=== PATIENT | male | born 2000 | race Caucasian/White ===

== ENCOUNTER 2021-09-16 14:27 | Observation (INO) | payer OTHER, SELFPAY ==
[2021-09-16] VITALS (7 sets, daily range): BP systolic 121–146; BP diastolic 72–83; PULSE 81–113; RESP 20–30; TEMP 36.6–37; O2SAT 90–97
--- NOTE | ~2021-09-16 | XR_ITS ---
EXAMINATION: XR chest 2V DATE: 09/16/2021 15:05 INDICATION: Asthma exacerbation. TECHNIQUE: Frontal and lateral views of the chest were obtained. COMPARISON: None. FINDINGS: There are airspace opacities in all lung zones bilaterally, worst in the left upper lobe an d right perihilar region. No pleural effusion or pneumothorax. The heart size is normal. IMPRESSION: 1. Diffuse lung disease, consistent with pneumonia. Reviewed, dictated and finalized at location A. [facility]
--- NOTE | 2021-09-16 14:48 | ECG_ITS ---
Measurements Intervals [place] Rate: 106 P: 73 LA: 159 QRS: 143 QRSD: 100 T: 55 QT: 323 QTc: 429 Interpretive Statements SINUS TACHYCARDIA INCOMPLETE RIGHT BUNDLE BRANCH BLOCK LEFT POSTERIOR FASCICULAR BLOCK ST ELEVATION IN DIFFUSE LEADS- CONSIDER PERICARDITIS OR EARLY REPOLARIZATION ABNORMALITY ABNORMAL ECG Electronically Signed On 09-16-2021 20:11:07 SENIOR NET SOFTWARE DEVELOPER by Tim Ng D.O.
--- NOTE | 2021-09-16 14:50 | ED.ASTHMA ---
HPI - Asthma General Chief Complaint: Asthma Stated Complaint: SOB Time Seen by Provider: 09/16/21 14:39 Source: patient Mode of arrival: EMS Limitations: no limitations History of Present Illness HPI Narrative: This is a 21-year-old male that presents to the emergency department for dyspnea. Reports history of asthma. Is on a daily inhaled corticosteroid as well as albuterol as needed. Reports worsening wheezing and cough over the last week. The cough is productive of mucus. He has been Covid vaccinated. Was seen at the clinic on campus and sent to the ED via EMS. Oxygen saturations noted to be in the upper 80s and low 90s. Given nebulizer treatment en route and placed on 2 L nasal cannula. Denies fever or chest pain. Related Data Allergies Allergy/AdvReac Type Severity Reaction Status Date / Time grass pollen Allergy Cough Verified 09/16/21 16:21 Review of Systems Review of Systems: CONSTITUTIONAL: Denies fever ENT: Reports congestion CARDIOVASCULAR: Denies chest pain, or edema. RESPIRATORY: Reports cough and dyspnea. All systems reviewed & are unremarkable except as noted in HPI and below PMFSH Past Medical History Medical History (Updated 09/16/21 @ 17:17 by Teodora Degroot PA-C) History of asthma Social History Social History (Updated 09/16/21 @ 14:53 by Teodora Degroot PA-C) Smoking status: Former smoker Exam Narrative: GENERAL: Well-appearing, well-nourished, and in no acute distress. HEAD: Normocephalic, atraumatic. EYES: EOMI. ENT: Nares clear, no rhinorrhea or epistaxis. Mucous membranes moist. Oropharynx without tonsillar hypertrophy exudate or other lesions. Bilateral TMs pearly diaz non-bulging NECK: Supple. No adenopathy or masses. CHEST: Tachypneic. Diffuse wheezing. No rales or rhonchi HEART: Regular rate and rhythm. No murmur heard. Normal peripheral pulses. EXTREMITIES: Normal range of motion. No edema. SKIN: Warm, dry, no rash. NEURO: No focal deficits. Alert and oriented x3. PSYCH: Normal mood and affect Course Consultations Consultation #1: Spoke with hospitalist about patient and workup who accepts admission Date: 09/16/21 Time: 17:28 Vital Signs Vital signs: Vital Signs Temperature 98.6 F 09/16/21 14:31 Pulse Rate 113 H 09/16/21 14:31 Respiratory Rate 30 H 09/16/21 14:31 Blood Pressure 139/81 09/16/21 14:31 Pulse Oximetry 90 09/16/21 14:31 Temperature 98.6 F 09/16/21 14:31 Pulse Rate 103 H 09/16/21 15:05 Respiratory Rate 27 H 09/16/21 15:05 Blood Pressure 139/81 09/16/21 14:31 Pulse Oximetry 95 09/16/21 14:38 MDM - Asthma MDM Narrative Medical decision making narrative: Patient presents to the emergency department for worsening cough and wheezing noted over the last week. He is afebrile and nontoxic-appearing. Tachycardic upon arrival. Oxygen saturation noted to be 90 on room air. Placed on 2 L nasal cannula. Patient did have a nebulizer treatment in route via EMS. Diffuse wheezing noted on exam. Patient is Covid vaccinated. CBC with leukocytosis to 17.7, likely due to his recent steroid use. Metabolic panel without concerning findings. LDH is elevated. Influenza screen is negative. Chest x-ray shows diffuse lung disease, consistent with pneumonia. EKG without concerning changes, patient denies any chest pain. Patient given dose of Solu-Medrol and breathing treatments with some improvement. Does still have persistent wheezing. SARS-CoV-2 was sent. Patient started on IV antibiotics for possible bacterial pneumonia pending results of Covid swab. Spoke with hospitalist about patient and work-up who accepts admission Lab Data Attestation: I reviewed the patient's lab results. Result diagrams: 09/16/21 15:11 09/16/21 15:11 Labs: Lab Results 09/16/21 09/16/21 09/16/21 Range/Units 15:11 15:11 16:10 WBC 17.7 H (4.5-10.0) K/mm3 RBC 5.15 (4.6-6.20) M/mm3 Hgb 15.8 (14.0-18.0) g/
[2021-09-16] MEDS: methylPREDNISolone SOD SUCC 125 MG VIAL IV PUSH (14:51)
[2021-09-16] MEDS: IPRATROPIUM BR 0.02% INH SOLN 0.5 MG/2.5 ML VIAL INHALATION (15:05)
[2021-09-16] MEDS: ALBUTEROL SULFATE NEB 2.5 MG/0.5 ML INH 5 MG INHALATION (15:05)
[2021-09-16 15:21] LABS: Basophils Absolute Auto 0.1 K/mm3 (0.0-0.1); Basophils Percent Auto 0.8 % (0.2-1.2); Eosinophils Absolute Auto 5.2 K/mm3 (0-0.3); Eosinophils Percent Auto 29.1 % (0-4.4); Hematocrit 44.5 % (42.0-52.0); Hemoglobin 15.8 g/dL (14.0-18.0); Immature Granulocyte Absolute 0.05 K/mm3 (0.00-0.031); Immature Granulocyte Percent A 0.3 % (0-0.5); Lymphocytes Absolute Auto 2.45 K/mm3 (0.9-3.2); Lymphocytes Percent Auto 13.8 % (18.3-44.2); Mean Corpuscular HGB Conc 35.5 g/dl (32-36); Mean Corpuscular Hemoglobin 30.7 pg (26-34); Mean Corpuscular Volume 86.4 fl (80-100); Mean Platelet Volume 8.4 fl (7.4-10.4); Monocytes Percent Auto 5.6 % (2.6-8.5); Neutrophils Absolute Auto 8.9 K/mm3 (1.3-6.7); Neutrophils Percent Auto 50.4 % (45.5-73.1); Platelet Count Result 266 k/mm3 (150-375); Red Blood Count 5.15 M/mm3 (4.6-6.20); Red Cell Distribution Width 11.9 % (11.5-14.5); White Blood Count 17.7 K/mm3 (4.5-10.0)
[2021-09-16 15:37] LABS: Anion Gap 9 mmol/L (8-16); Blood Urea Nitrogen 10 mg/dL (9-20); Calcium 9.1 mg/dL (8.4-10.2); Carbon Dioxide 27 mmol/L (22-30); Chloride 104 mmol/L (98-107); Estimated CRCL calculation 151 ml/min; Estimated Glomerular Filt Rate > 60; Glucose 111 mg/dL (65-110); Potassium 3.6 mmol/L (3.4-5.0); Sodium 140 mmol/L (137-145)
[2021-09-16 16:37] LABS: Alanine Aminotransferase 22 U/L (4-50); Albumin Level 4.2 g/dL (3.5-5.1); Alkaline Phosphatase 88 U/L (38-126); Aspartate Amino Transferase 32 U/L (17-59); Bilirubin,Total 0.5 mg/dL (0.2-1.3); Lactate Dehydrogenase 1349 U/L (313-618)
[2021-09-16 17:22] LABS: Procalcitonin 0.1 ng/mL
[2021-09-16 17:27] LABS: INR 1.1; Partial Thromboplastin Time 25.1 SECONDS (22.3-36.8)
[2021-09-16] MEDS: Please add drug allergy info to patient profile. 1 EACH XX (17:31)
[2021-09-16] MEDS: ALBUTEROL SULFATE (*SP) INHALER 1 PUFF (17:38)
[2021-09-16] MEDS: ALBUTEROL SULFATE (*SP) AEROSOL 1 PUFF 4 PUFF INHALATION (17:38)
--- NOTE | 2021-09-16 18:40 | PC.NURSE ---
Attempted to call report. Room is not clean at this time
--- NOTE | 2021-09-16 20:33 | ADMGEN ---
This patient, Felicia Brody, was admitted to [facility] Surg Room 330-01. Patient/family oriented to hospital policies and general routines including ID bracelet, bed and alarms, visiting hours, pain management, procedures, bathroom and other care routines, personal items, smoking policy, room service/diet, and visiting hours. Information on how to activate the Rapid Response Team has been discussed. Patient/Family are encouraged to report perceived risks to care and to ask questions if they do not understand what they are told or what they should do.
--- NOTE | 2021-09-16 22:38 | PM.IMHP ---
H&P: HPI History of Present Illness Date/Time: 09/16/21 22:38 this is a 21-year-old male patient who resides at [facility]. The patient came from [place] approximately 4 months ago. He states that his roommates are healthy. The patient stated that he had asthma when he was younger. The patient stated that he used to use an inhaler when he was younger. The patient came to the emergency room today with complaints of dyspnea. The patient has been using inhaled cortical steroids daily as well as an albuterol as needed. The patient stated that he has been using his albuterol up to 4 times a day. The patient stated he has been coughing up thick mucus. He has had his COVID vaccine. The patient was seen at the [facility] today and was sent to the emergency room via EMS. It was reported that the patient's oxygen level was in the upper 80s to lower 90s. Oxygen was placed on the patient at 2 L per nasal cannula. The patient was swabbed for COVID-19. His white count is noted to be 17.7. However the patient has been on oral steroids. Chest x-ray shows diffuse lung disease consistent with pneumonia. The patient was given a nebulizer treatment and steroids in the emergency room. He was also started on azithromycin and Rocephin. The patient is being admitted for observation status on the date of service of 09/16/2021 Chief Complaint: Shortness of breath Review of Systems Review of Systems: All systems reviewed & are unremarkable except as noted in HPI and below Constitutional: Constitutional: Reports as per HPI and Reports no additional constitutional complaints Eyes: Eyes: Reports as per HPI and Reports no additional eye complaints ENT: Reports system reviewed and no additional complaints, except as documented and Reports Normal hearing present Cardiovascular: Cardiovascular: Reports no additional cardiovascular complaints Respiratory: Respiratory: Reports no additional respiratory complaints and Reports no additional respiratory complaints Gastrointestinal: Gastrointestinal: Reports as per HPI and Reports no additional gastrointestinal complaints Musculoskeletal: Musculoskeletal: Reports no additional musculoskeletal complaints Integumentary/Breasts: Skin/Breast: Reports system reviewed and no additional complaints, except as docu and Reports as per HPI Neurologic: Reports system reviewed and no additional complaints, except as documented, Reports as per HPI and Reports Normal hearing present Psychiatric: Psychiatric: Reports no additional psychiatric complaints and Reports as per HPI Endocrine: Endocrine: Reports no additional endocrine complaints Hematologic/Lymphatic: Hematologic/Lymphatic: Reports no additional hematologic/lymphatic complaints Allergic/Immunologic: Allergic/Immunologic: Reports no additional allergic/immunologic complaints [facility] Past Medical History Medical History (Updated 09/16/21 @ 22:47 by Monserrat Cordero NP) History of asthma Surgical History Surgical History (Updated 09/16/21 @ 22:47 by Monserrat Cordero NP) No pertinent past surgical history Family History Family History (Updated 09/16/21 @ 22:48 by Monserrat Cordero NP) Father Healthy adult Mother Healthy adult Social History Social History (Updated 09/16/21 @ 22:49 by Monserrat Cordero NP) Social History: The patient goes to school at [employer] and resides in the dorm. The patient came from [place] 4 months ago. The patient does not have a durable power family law attorney for healthcare. The patient does not have any children and he is single. Patient is a former smoker. Code status full code Smoking status: Former smoker Meds Home Medications and Allergies Allergies Allergy/AdvReac Type Severity Reaction Status Date / Time grass pollen Allergy Cough Verified 09/16/21 16:21 Vital Signs Vital Signs - 24 hr 09/16/21 14:31 09/16/21 14:38 09/16/21 15:05 Temperature 37.0 C Pulse Rate 113 H 103 H Resp
[2021-09-17] VITALS (10 sets, daily range): BP systolic 126–145; BP diastolic 55–76; PULSE 85–110; RESP 18–21; TEMP 36.1–37.3; O2SAT 90–96
[2021-09-17] MEDS: methylPREDNISolone SOD SUCC 125 MG VIAL 60 MG IV PUSH ×4 (00:44→17:33)
[2021-09-17] MEDS: MAGNESIUM SULF 2 GM/WATER 50ML 2 GM/50 ML BAG IVPB (00:48)
[2021-09-17] MEDS: ALBUTEROL SULFATE (*SP) INHALER 2 PUFF INHALATION ×4 (02:05→20:45)
[2021-09-17 06:59] LABS: Basophils Percent Auto 0.3 % (0.2-1.2); Eosinophils Absolute Auto 0.1 K/mm3 (0-0.3); Eosinophils Percent Auto 0.5 % (0-4.4); Hematocrit 45.2 % (42.0-52.0); Hemoglobin 15.2 g/dL (14.0-18.0); Immature Granulocyte Absolute 0.09 K/mm3 (0.00-0.031); Immature Granulocyte Percent A 0.6 % (0-0.5); Lymphocytes Absolute Auto 1.86 K/mm3 (0.9-3.2); Lymphocytes Percent Auto 12.1 % (18.3-44.2); Mean Corpuscular HGB Conc 33.6 g/dl (32-36); Mean Corpuscular Hemoglobin 30.6 pg (26-34); Mean Corpuscular Volume 90.9 fl (80-100); Mean Platelet Volume 8.4 fl (7.4-10.4); Monocytes Absolute Auto 0.5 K/mm3 (0.1-0.6); Monocytes Percent Auto 3.4 % (2.6-8.5); Neutrophils Absolute Auto 12.8 K/mm3 (1.3-6.7); Neutrophils Percent Auto 83.1 % (45.5-73.1); Platelet Count Result 270 k/mm3 (150-375); Red Blood Count 4.97 M/mm3 (4.6-6.20); Red Cell Distribution Width 12.1 % (11.5-14.5); White Blood Count 15.3 K/mm3 (4.5-10.0)
[2021-09-17 07:08] LABS: Lactate Dehydrogenase 1029 U/L (313-618); Magnesium 2.5 mg/dL (1.6-2.3)
[2021-09-17 08:11] LABS: Thyroid Stimulating Hormone Reflex 0.284 uIU/mL (0.465-4.68)
[2021-09-17] MEDS: ENOXAPARIN 40 MG/0.4 ML SYRINGE SUB-Q (08:31)
[2021-09-17] MEDS: FLUTICASONE/SALMETEROL 115-21 MCG (*SP) INHALER 2 PUFF INHALATION ×2 (08:44→20:45)
[2021-09-17 10:13] LABS: Free T4 Free Thyroxine Reflex 1.36 ng/dL (0.78-2.19)
[2021-09-17] MEDS: BENZONATATE 100 MG CAPSULE 200 MG PO ×2 (11:33→20:44)
[2021-09-17] MEDS: guaiFENesin 12 HR 600 MG TABCR PO ×2 (11:33→20:46)
--- NOTE | 2021-09-17 17:44 | PM.IMPN ---
Progress Note: A&P Assessment and Plan (1) Community acquired pneumonia: Code(s): J18.9 - Pneumonia, unspecified organism Status: Acute Assessment and Plan: The patient was started on community-acquired antibiotic stewardship with azithromycin Rocephin. Blood and sputum cultures are pending. Continue with inhalers. The patient was found to be hypoxic at the [facility]. 09/17/2021 interval history: patient states is feeling much better compared to when he arrived most likely patient has exacerbation of asthma being treated with methylprednisone, DuoNeb and azithromycin, and Rocephin for community-acquired pneumonia, patient also suspect may have a COVID-19 tested an isolated will continue to monitor and further recommendation to follow. (2) Asthma with acute exacerbation: Qualifiers: Asthma persistence: persistent Asthma severity: unspecified severity Qualified Code(s): J45.901 - Unspecified asthma with (acute) exacerbation Code(s): J45.901 - Unspecified asthma with (acute) exacerbation Status: Acute Assessment and Plan: Continue with Solu-Medrol and inhalers. The patient is wheezing at this time. (3) Person under investigation for COVID-19: Code(s): Z20.822 - Contact with and (suspected) exposure to COVID-19 Status: Acute Assessment and Plan: The patient is on droplet and contact isolation. The patient stated that he has been sick already for at least 1 week. He stated he did not get tested for COVID until today. Subjective Date/time seen: 09/17/21 17:44 this is a 21-year-old male patient who resides at [facility]. The patient came from [place] approximately 4 months ago. He states that his roommates are healthy. The patient stated that he had asthma when he was younger. The patient stated that he used to use an inhaler when he was younger. The patient came to the emergency room today with complaints of dyspnea. The patient has been using inhaled cortical steroids daily as well as an albuterol as needed. The patient stated that he has been using his albuterol up to 4 times a day. The patient stated he has been coughing up thick mucus. He has had his COVID vaccine. The patient was seen at the [facility] today and was sent to the emergency room via EMS. It was reported that the patient's oxygen level was in the upper 80s to lower 90s. Oxygen was placed on the patient at 2 L per nasal cannula. The patient was swabbed for COVID-19. His white count is noted to be 17.7. However the patient has been on oral steroids. Chest x-ray shows diffuse lung disease consistent with pneumonia. The patient was given a nebulizer treatment and steroids in the emergency room. He was also started on azithromycin and Rocephin. The patient is being admitted for observation status on the date of service of 09/16/2021 Chief Complaint: Shortness of breath 09/17/2021 interval history: patient states is feeling much better compared to when he arrived most likely patient has exacerbation of asthma being treated with methylprednisone, DuoNeb and azithromycin, and Rocephin for community-acquired pneumonia, patient also suspect may have a COVID-19 tested an isolated will continue to monitor and further recommendation to follow. Review of Systems Review of Systems: All systems reviewed & are unremarkable except as noted in HPI and below Exam Narrative: patient speaks in full sentences Patient is comfortable, NAD HEENT: eyes are clear and none icteric LUNGS: bilateral fair air entry with expiratory wheezing HEART: RR S1S2 ABD: BS+, Soft and nontender Lower extremities: no edema SKIN: nonjaundiced Neuro: grossly intact. Objective Data Vital Signs Vital Signs: Vital Signs - 24 hr 09/16/21 20:16 09/16/21 21:05 09/16/21 21:23 Temperature 97.9 F Pulse Rate 81 104 H Respiratory Rate 24 H 20 Blood Pressure 129/83 146/72 H Pulse Oximetry 95 90 96
[2021-09-18] VITALS (10 sets, daily range): BP systolic 118–133; BP diastolic 59–76; PULSE 71–94; RESP 18–24; TEMP 36.3–36.8; O2SAT 91–97
[2021-09-18] MEDS: methylPREDNISolone SOD SUCC 125 MG VIAL 60 MG IV PUSH ×4 (01:04→18:07)
[2021-09-18] MEDS: ALBUTEROL SULFATE (*SP) INHALER 2 PUFF INHALATION ×3 (02:28→20:37)
[2021-09-18] MEDS: BENZONATATE 100 MG CAPSULE 200 MG PO ×3 (06:16→22:09)
[2021-09-18] MEDS: guaiFENesin 12 HR 600 MG TABCR PO ×2 (08:20→22:10)
[2021-09-18] MEDS: ENOXAPARIN 40 MG/0.4 ML SYRINGE SUB-Q (08:20)
[2021-09-18] MEDS: FLUTICASONE/SALMETEROL 115-21 MCG (*SP) INHALER 2 PUFF INHALATION ×2 (08:44→20:37)
--- NOTE | 2021-09-18 16:32 | PM.IMPN ---
Progress Note: A&P Assessment and Plan (1) Community acquired pneumonia: Code(s): J18.9 - Pneumonia, unspecified organism Status: Acute Assessment and Plan: The patient was started on community-acquired antibiotic stewardship with azithromycin Rocephin. Blood and sputum cultures are pending. Continue with inhalers. The patient was found to be hypoxic at the [facility]. 09/17/2021 interval history: patient states is feeling much better compared to when he arrived most likely patient has exacerbation of asthma being treated with methylprednisone, DuoNeb and azithromycin, and Rocephin for community-acquired pneumonia, patient also suspect may have a COVID-19 tested an isolated will continue to monitor and further recommendation to follow. 09/18/2021 interval history: patient remains clinically stable, feeling much better compared to when he arrived, his COVID test still pending, patient does not have a history of asthma most likely his symptoms are stemming from upper respiratory infection. will continue to monitor and further recommendation to follow. (2) Asthma with acute exacerbation: Qualifiers: Asthma persistence: persistent Asthma severity: unspecified severity Qualified Code(s): J45.901 - Unspecified asthma with (acute) exacerbation Code(s): J45.901 - Unspecified asthma with (acute) exacerbation Status: Acute Assessment and Plan: Continue with Solu-Medrol and inhalers. The patient is wheezing at this time. (3) Person under investigation for COVID-19: Code(s): Z20.822 - Contact with and (suspected) exposure to COVID-19 Status: Acute Assessment and Plan: The patient is on droplet and contact isolation. The patient stated that he has been sick already for at least 1 week. He stated he did not get tested for COVID until today. Subjective Date/time seen: 09/18/21 16:32 09/17/2021 interval history: patient states is feeling much better compared to when he arrived most likely patient has exacerbation of asthma being treated with methylprednisone, DuoNeb and azithromycin, and Rocephin for community-acquired pneumonia, patient also suspect may have a COVID-19 tested an isolated will continue to monitor and further recommendation to follow. 09/18/2021 interval history: patient remains clinically stable, feeling much better compared to when he arrived, his COVID test still pending, patient does not have a history of asthma most likely his symptoms are stemming from upper respiratory infection. will continue to monitor and further recommendation to follow. Review of Systems Review of Systems: All systems reviewed & are unremarkable except as noted in HPI and below Exam Narrative: patient speaks in full sentences Patient is comfortable, NAD HEENT: eyes are clear and none icteric LUNGS: bilateral fair air entry with expiratory wheezing HEART: RR S1S2 ABD: BS+, Soft and nontender Lower extremities: no edema SKIN: nonjaundiced Neuro: grossly intact. Objective Data Vital Signs Vital Signs: Vital Signs - 24 hr 09/17/21 20:00 09/17/21 20:52 09/18/21 00:00 Temperature 99.1 F 98.0 F Pulse Rate 99 85 Respiratory Rate 18 18 Blood Pressure 126/64 118/76 Pulse Oximetry 95 95 93 09/18/21 04:00 09/18/21 08:00 09/18/21 08:44 Temperature 97.4 F L 98.2 F Pulse Rate 83 80 Respiratory Rate 18 24 H Blood Pressure 119/62 133/59 L Pulse Oximetry 94 91 97 09/18/21 08:59 09/18/21 12:00 09/18/21 16:00 Temperature 98.0 F 98.2 F Pulse Rate 91 80 Respiratory Rate 20 20 Blood Pressure 122/63 133/70 Pulse Oximetry 91 96 92 Intake/Output Intake/Output: Intake & Output 09/15/21 09/16/21 09/17/21 09/18/21 23:59 23:59 23:59 23:59 Intake Total 300 1475 1270 Balance 300 1475 1270 Meds/Results Medications: Active Medications Generic Name Dose Route Start Last Admin Trade Name Freq PRN Reason Stop Dose Admin Albuterol 2
--- NOTE | 2021-09-18 16:46 | PM.DS ---
DS: Admitting Diagnosis Discharge Date 09/18/2021 Admitting Diagnosis Shortness of breath DS: Discharge Diagnosis Discharge Diagnosis (1) Community acquired pneumonia: Code(s): J18.9 - Pneumonia, unspecified organism Status: Acute Assessment and Plan: The patient was started on community-acquired antibiotic stewardship with azithromycin Rocephin. Blood and sputum cultures are pending. Continue with inhalers. The patient was found to be hypoxic at the [facility]. 09/17/2021 interval history: patient states is feeling much better compared to when he arrived most likely patient has exacerbation of asthma being treated with methylprednisone, DuoNeb and azithromycin, and Rocephin for community-acquired pneumonia, patient also suspect may have a COVID-19 tested an isolated will continue to monitor and further recommendation to follow. 09/18/2021 interval history: patient remains clinically stable, feeling much better compared to when he arrived, his COVID test still pending, patient does not have a history of asthma most likely his symptoms are stemming from upper respiratory infection. will continue to monitor and further recommendation to follow. (2) Asthma with acute exacerbation: Qualifiers: Asthma persistence: persistent Asthma severity: unspecified severity Qualified Code(s): J45.901 - Unspecified asthma with (acute) exacerbation Code(s): J45.901 - Unspecified asthma with (acute) exacerbation Status: Acute Assessment and Plan: Continue with Solu-Medrol and inhalers. The patient is wheezing at this time. (3) Person under investigation for COVID-19: Code(s): Z20.822 - Contact with and (suspected) exposure to COVID-19 Status: Acute Assessment and Plan: The patient is on droplet and contact isolation. The patient stated that he has been sick already for at least 1 week. He stated he did not get tested for COVID until today. DS: Summary Hospital Course Reason for hospitalization: this is a 21-year-old male patient who resides at [facility]. The patient came from [place] approximately 4 months ago. He states that his roommates are healthy. The patient stated that he had asthma when he was younger. The patient stated that he used to use an inhaler when he was younger. The patient came to the emergency room today with complaints of dyspnea. The patient has been using inhaled cortical steroids daily as well as an albuterol as needed. The patient stated that he has been using his albuterol up to 4 times a day. The patient stated he has been coughing up thick mucus. He has had his COVID vaccine. The patient was seen at the [facility] today and was sent to the emergency room via EMS. It was reported that the patient's oxygen level was in the upper 80s to lower 90s. Oxygen was placed on the patient at 2 L per nasal cannula. The patient was swabbed for COVID-19. His white count is noted to be 17.7. However the patient has been on oral steroids. Chest x-ray shows diffuse lung disease consistent with pneumonia. The patient was given a nebulizer treatment and steroids in the emergency room. He was also started on azithromycin and Rocephin. The patient is being admitted for observation status on the date of service of 09/16/2021 Chief Complaint: Shortness of breath Hospital Course: 09/17/2021 interval history: patient states is feeling much better compared to when he arrived most likely patient has exacerbation of asthma being treated with methylprednisone, DuoNeb and azithromycin, and Rocephin for community-acquired pneumonia, patient also suspect may have a COVID-19 tested an isolated will continue to monitor and further recommendation to follow. 09/18/2021 interval history: patient remains clinically stable, feeling much better compared to when he arrived, his COVID test still pending, patient does not have a history of asthma most likely his symptoms a
--- NOTE | 2021-09-18 17:29 | PC.NURSE ---
Patient stated this morning that he does not have a history of Asthma, he never has had it and has never been diagnosed with it. He wished for the doctor to make sure it wasn't documented that he had Asthma due to documentation reason and insurance reasons. This nurse called and informed Dr. Marin and he said he would make notation of this information.
[2021-09-18 18:11] LABS: SARS-CoV-2 RNA PCR Negative
[2021-09-19] VITALS: PULSE 85
[2021-09-19] MEDS: methylPREDNISolone SOD SUCC 125 MG VIAL 60 MG IV PUSH ×2 (00:43→06:28)
[2021-09-19] MEDS: ALBUTEROL SULFATE (*SP) INHALER 2 PUFF INHALATION ×2 (01:50→07:49)
[2021-09-19 04:00] VITALS: PULSE 65
[2021-09-19 05:53] VITALS: BP 122/62; PULSE 92; RESP 18; TEMP 36.2; O2SAT 96
[2021-09-19] MEDS: BENZONATATE 100 MG CAPSULE 200 MG PO (06:29)
[2021-09-19] MEDS: FLUTICASONE/SALMETEROL 115-21 MCG (*SP) INHALER 2 PUFF INHALATION (07:49)
[2021-09-19 08:00] VITALS: PULSE 90
[2021-09-19] MEDS: guaiFENesin 12 HR 600 MG TABCR PO (08:27)
== END 2021-09-19 10:56 | disposition home or self-care (01) ==
LOC: ANHED 17:31 → ANH3MEDSUR 09-17 11:00
PROVIDERS: Nurse Practitioner; Physician Assistant; Admitting Provider Internal Medicine; Emergency Provider Emergency Medicine; Visit Provider Family Medicine
DX: J18.9 Pneumonia, unspecified organism (principal); J45.901 Unspecified asthma with (acute) exacerbation; R06.02 Shortness of breath; Z20.822 Contact with and (suspected) exposure to COVID-19; Z87.891 Personal history of nicotine dependence
CPT/HCPCS: 36415; 71046; 80048; 80076; 82728; 83605; 83615; 83735; 84145; 84439; 84443; 84480; 85025; 85610; 85730; 87040; 87070; 87205; 87804; 93005; 94640; 96365; 96366; 96367; 96372; 96374; 96375; 96376; 99291; A9270; C9803; G0378; J0456; J0696; J1650; J2930; J3475; U0003; U0005

== ENCOUNTER 2023-11-02 15:59 | Emergency (ER) | payer OTHER, SELFPAY ==
[2023-11-02 16:10] VITALS: BP 136/82; PULSE 88; RESP 16; TEMP 36.9; O2SAT 97
--- NOTE | 2023-11-02 17:00 | ED.URI ---
HPI - URI/Sore Throat General Chief Complaint: Upper Respiratory Infection Stated Complaint: Sinus, Headache, Earache, Cogh Source: patient Mode of arrival: ambulatory Limitations: no limitations History of Present Illness HPI Narrative: 23 y/o male presented for c/o right ear pain x 2 days with muffled hearing. Pt reports recurrent ear infections, most recently completed antibiotics one week ago (Augmentin) Pt has used tinnitus drops, montelukast, claritin, flonase, and humidifier but continues to have infections. Endorses sinus congestion. States he takes a course of antibiotics and has temporary improvement in the symptoms. 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 Denies n/v/d/f/c. Related Data Home Medications Medication Instructions Recorded Confirmed montelukast 10 mg tablet 10 mg PO DAILY 11/02/23 11/02/23 Allergies Allergy/AdvReac Type Severity Reaction Status Date / Time grass pollen Allergy Cough Verified 11/02/23 16:18 Review of Systems Review of Systems: CONSTITUTIONAL: Denies malaise, chills, or fever. EYES: Denies visual changes, redness, or discharge. ENT: Denies sore throat. Reports ear pain,congestion, sinus pain CARDIOVASCULAR: Denies chest pain, palpitations, or edema. RESPIRATORY: Denies cough or dyspnea. GASTROINTESTINAL: Denies abdominal pain, nausea, vomiting, diarrhea SKIN: Denies rash or itching. MUSCULOSKELETAL: Denies myalgia. NEUROLOGIC: Denies headache. All systems reviewed & are unremarkable except as noted in HPI and below PMFSH Past Medical History Medical History History of asthma Surgical History Surgical History No pertinent past surgical history Family History Family History Father Healthy adult Mother Healthy adult Social History Social History Social History: The patient goes to school at [employer] and resides in the dorm. The patient came from [place] 4 months ago. The patient does not have a durable power bankruptcy attorney for healthcare. The patient does not have any children and he is single. Patient is a former smoker. Code status full code Smoking status: Former smoker Alcohol intake: never Substance use: never Spiritual care concerns: No Comments At time of signature, agree with nursing past medical, surgical, social and family history. There is no relevant family history pertinent to the presenting complaint Exam Narrative: GENERAL: Well-appearing EYES: PERRLA, conjunctivae clear ENT: Nares clear. Mucous membranes moist. Left TM pearly daiz with dull light reflex; right TM erythematous, bulging and intact, canal not erythematous, No drainage no tragal or mastoid tenderness. Oropharynx not erythematous without lesions. Tonsils not enlarged and without exudate, no drooling, no hoarseness, no trismus, uvula midline. NECK: Supple. No lymphadenopathy CHEST: Clear to auscultation, breath sounds equal. HEART: Regular rate and rhythm. No murmur heard. SKIN: Warm, dry, no rash. NEURO: Alert and oriented x3. PSYCH: Normal mood and affect Course Course Emergency Course: Patient is aware of diagnosis, understands and agrees to treatment plan. Anticipatory guidance given. Patient agrees to follow-up as directed and is aware of reasons to seek care at the emergency department. Portions of this record may have been created with voice recognition software Level of Care: Express Care Visit Vital Signs Vital signs: Vital Signs Temperature 98.5 F 11/02/23 16:10 Pulse Rate 88 11/02/23 16:10 Respiratory Rate 16 11/02/23 16:10 Blood Pressure 136/82 11/02/23 16:10 Pulse Oximetry 97 11/02/23 16:10 Temperature 98.5 F 11/02/23 16:10 Pulse Rate 88 11/02/23 16:10 Respiratory Rate 16 11/02/23 16:10 Blood Pressure 136/82
== END 2023-11-02 17:17 | disposition home or self-care (01) ==
PROVIDERS: Emergency Provider Nurse Practitioner Family
DX: H66.91 Otitis media, unspecified, right ear (principal); J45.909 Unspecified asthma, uncomplicated
CPT/HCPCS: 99213; G0463